=== PATIENT | male | born 1985 | race African-American/Black ===

== ENCOUNTER 2020-10-10 19:53 | Emergency (ER) | payer MEDICAID ==
[~2020-10-10] VITALS: Ht 190.5 cm; Wt 86.2 kg
[2020-10-10 22:33] LABS: Basophils # (auto) 0.1 10 ^3/uL (0-0.2); Eosinophils # (auto) 0 10 ^3/uL (0-0.8); Eosinophils % (auto) 0.4 % (0.0-7.0); Hematocrit 20.7 % (41.0-53.0); Mean Corpuscular Volume 90.5 fL (80.0-100.0); Monocytes # (auto) 0.9 10 ^3/uL (0-1.3); Neutrophils # (auto) 3.2 10 ^3/uL (1.6-8.6); Neutrophils % (auto) 46.9 % (37.0-80.0); Red Blood Cells 2.29 10^6/uL (4.5-5.90)
[2020-10-10 22:37] LABS: Basophils % (auto) 1.7 % (0.0-2.0); Hemoglobin 7.8 g/dL (13.5-17.5); Lymphocytes # (auto) 2.6 10 ^3/uL (0.4-5.4); Lymphocytes % (auto) 38.3 % (10.0-50.0); Mean Corpuscular Hemoglobin 33.9 pg (28.0-32.0); Monocytes % (auto) 12.7 % (0.0-12.0); White Blood Cell 6.8 10^3/uL (4.4-10.8)
[2020-10-10 22:44] LABS: Nucleated Red Blood Cells % 9.1 %
[2020-10-10 22:45] LABS: Mean Corpuscular Hgb Conc. 37.4 g/dL (32.0-36.0); Red Cell Distribution Width 23.7 % (11.8-14.3)
[2020-10-10 22:48] LABS: Albumin 3.8 g/dL (3.4-5.0); Calcium 8.2 mg/dL (8.5-10.1); Potassium 4.7 mmol/L (3.5-5.1)
[2020-10-10 22:51] LABS: BUN/Creatinine Ratio 20.3
[2020-10-10 22:54] LABS: Bilirubin, Total 1.3 mg/dL (0.2-1.0); Total Protein 8.4 g/dL (6.4-8.2)
[2020-10-11] MEDS ORDERED: SODIUM CHLORIDE 0.9% 1,000 ML IV ONE ×3 (00:30→07:30)
[2020-10-11] MEDS ORDERED: diphenhdrAMINE HCL 50 MG/1 ML VL IV ONE ×3 (00:45→12:15)
[2020-10-11] MEDS ORDERED: PROMETHAZINE HCL 25 MG/ML 1ML IV ONE (00:45)
[2020-10-11] MEDS ORDERED: HYDROmorphone HCL 2 MG/ML VL IV ONE ×4 (00:45→12:15)
[2020-10-11] MEDS ORDERED: diphenhdrAMINE HCL 50 MG/1 ML VL ONE (09:14)
[2020-10-11 11:30] VITALS: BP 144/70
== END 2020-10-11 12:43 ==
LOC: ER 19:53
DX: D57.00 Hb-SS disease with crisis, unspecified (principal); Z20.822 Contact with and (suspected) exposure to COVID-19
CPT/HCPCS: 36415; 71045; 80053; 83021; 85025; 85045; 85660; 87426; 96361; 96374; 96375; 96376; 99285; J1170; J1200; J2550; J7030